=== PATIENT | male | born 1975 | race Caucasian/White ===

== ENCOUNTER 2021-07-27 08:42 | Emergency (ER) | payer OTHER | END 2021-07-27 10:30 | disposition home or self-care (01) | LOC: ER1 08:42 | DX: S00.03XA Contusion of scalp, initial encounter (principal); S50.312A Abrasion of left elbow, initial encounter; S80.812A Abrasion, left lower leg, initial encounter; W01.10XA Fall on same level from slipping, tripping and stumbling with subsequent striking against unspecified object, initial encounter | CPT/HCPCS: 73030; 73080; 99283 ==